=== PATIENT | male | born 1970 | race Two or more races ===

== ENCOUNTER 2019-02-21 06:50 | Emergency (ER) | payer OTHER ==
[~2019-02-21] VITALS: Ht 172.7 cm; Wt 71.2 kg
--- NOTE | 2019-02-21 07:05 | NUR ---
CXR IN PROGRESS AT THE BEDSIDE.
--- NOTE | 2019-02-21 07:08 | NUR ---
LAB CALLED FOR BLOOD DRAW.
--- NOTE | 2019-02-21 07:27 | NUR ---
REPORT RECEIVED FROM TERRY
[2019-02-21 07:31] LABS: BASOPHILS % (AUTO) 0.7 % (0.0-2.0); EOSINOPHILS % (AUTO) 2.1 % (0.0-6.0); HEMATOCRIT 50 % (39-51); HEMOGLOBIN 16.7 g/dL (13.5-17.5); LYMPHOCYTES # (AUTO) 0.9 /CMM (0.8-4.8); LYMPHOCYTES % (AUTO) 21.3 % (20.0-44.0); MEAN CORPUSCULAR HGB CONC 33 g/dl (31.0-36.0); MEAN CORPUSCULAR VOLUME 94 fL (80-96); MONOCYTES # (AUTO) 0.9 /CMM (0.1-1.30); MONOCYTES % (AUTO) 21.9 % (2.0-12.0); NEUTROPHILS # (AUTO) 2.3 /CMM (1.8-8.9); PLATELET COUNT (AUTO) 211 /CMM (150-450); RED BLOOD CELL COUNT(AUTO) 5.33 MIL/uL (4.5-6.0); WHITE BLOOD COUNT (AUTO) 4.3 K/uL (4.3-11.0)
[2019-02-21 07:35] LABS: CALCIUM, SERUM 8.7 mg/dL (8.5-10.1); CARBON DIOXIDE 31 mmol/L (21-32); CHLORIDE 103 mmol/L (98-107); GLUCOSE 98 mg/dL (74-106); POTASSIUM 4.6 mmol/L (3.5-5.1); SODIUM SERUM 138 mmol/L (136-145); UREA NITROGEN, BLOOD 15 mg/dL (7-18)
--- NOTE | 2019-02-21 07:45 | NUR ---
Patient is resting comfortably in bed with eyes closed. Easily aroused. VSS
[2019-02-21] MEDS ORDERED: RIVAROXABAN 15 MG TABLET PO SCH (08:00)
[2019-02-21 08:03] VITALS: BP 128/100
--- NOTE | 2019-02-21 08:26 | NUR ---
Patient a/ox4, no sob noted, denies pain at this time. Patient discharged to [facility] custody in stable condition. Written and verbal after care instructions given. Patient verbalizes understanding of instruction.
== END 2019-02-21 08:26 | disposition home or self-care (01) ==
LOC: ER 06:51
DX: M79.662 Pain in left lower leg (principal); Z86.711 Personal history of pulmonary embolism; Z91.14 Patient's other noncompliance with medication regimen; Z86.718 Personal history of other venous thrombosis and embolism
CPT/HCPCS: 36415; 71045-TC; 80048-TC; 84484-TC; 85025-TC; 85730-TC; 93971-TC